=== PATIENT | female | born 1960 | race Asian ===

== ENCOUNTER 2016-09-28 11:28 | Emergency (ER) | payer BC, OTHER ==
[2016-09-28 11:42] VITALS: BP 155/95
--- NOTE | 2016-09-28 11:55 | UC ---
Throat Pain/Nasal Mirza HPI - HPI Summary HPI Summary: Sore throat and body aches for 1 days subjective fevers - History of Current Complaint Chief Complaint: UCGeneralIllness Stated Complaint: COUGH,FEVER, ACHES Time Seen by Provider: 09/28/16 11:33 Hx Obtained From: Patient ?: No Onset/Duration: Sudden Onset, Lasting Days - 1, Still Present Severity: Moderate Pain Intensity: 5 Pain Scale Used: 0-10 Numeric Cough: None Associated Signs & Symptoms: Positive: Fever - subjective - Allergies/Home Medications Allergies/Adverse Reactions: Allergies Allergy/AdvReac Type Severity Reaction Status Date / Time No Known Allergies Allergy Verified 08/26/13 18:05 Home Medications: Home Medications Ibuprofen [Advil] 09/28/16 [History] PMH/Surg Hx/FS Hx/Imm Hx Previously Healthy: Yes - Surgical History Surgical History: Yes Surgery Procedure, Year, and Place: hysterectomy, C-sections - Family History Known Family History: Positive: None Family History: no reported cardiovascular issues in family lineage - Social History Occupation: Employed Full-time Lives: With Family Alcohol Use: Occasionally Substance Use Type: None Smoking Status (MU): Never Smoked Tobacco Review of Systems Constitutional: Chills Skin: Negative Eyes: Negative ENT: Sore Throat Respiratory: Negative Cardiovascular: Negative Gastrointestinal: Negative Genitourinary: Negative Motor: Negative Neurovascular: Negative Musculoskeletal: Arthralgia, Myalgia Neurological: Negative Psychological: Negative All Other Systems Reviewed And Are Negative: Yes Physical Exam Triage Information Reviewed: Yes Appearance: Well-Appearing, No Pain Distress, Well-Nourished Vital Signs: Initial Vital Signs Temp 99.3 F 09/28/16 11:39 Pulse 89 09/28/16 11:39 Resp 18 09/28/16 11:39 BP 155/95 09/28/16 11:39 Pulse Ox 99 09/28/16 11:39 Vital Signs Reviewed: Yes Eye Exam: Normal Eyes: Positive: Conjunctiva Clear ENT Exam: Normal ENT: Positive: Normal ENT inspection, Hearing grossly normal, Pharynx normal, TMs normal. Negative: Nasal congestion, Nasal drainage, Tonsillar swelling, Tonsillar exudate, Trismus, Muffled/hoarse voice Dental Exam: Normal Neck exam: Normal Neck: Positive: Supple, Nontender, No Lymphadenopathy Respiratory Exam: Normal Respiratory: Positive: Chest non-tender, Lungs clear, Normal breath sounds, No respiratory distress, No accessory muscle use Cardiovascular Exam: Normal Cardiovascular: Positive: RRR, No Murmur, Pulses Normal, Brisk Capillary Refill Abdominal Exam: Normal Musculoskeletal Exam: Normal Musculoskeletal: Positive: Strength Intact, ROM Intact, No Edema Neurological Exam: Normal Neurological: Positive: Alert, Muscle Tone Normal Psychological Exam: Normal Skin Exam: Normal Diagnostics - Laboratory Diagnostic Studies Completed/Ordered: RST (-) Throat Pain/Nasal Course/Dx - Course Assessment/Plan: Flonase, Zyrtec, zithmax should Sx worsen or fail to improve, follow Blood Pressure with PCP - Differential Dx/Diagnosis Differential Diagnosis/HQI/PQRI: Pharyngitis, Sinusitis, URI Provider Diagnoses: Allergic Rhinnitis, Elevated Blood Pressure With out Dx Discharge - Discharge Plan Condition: Stable Disposition: HOME Prescriptions: Azithromycin TAB* [Zithromax TAB (Z-MAGGY) 250 mg #6 tabs] 2 tab PO .TODAY, THEN 1 DAILY #1 maggy Cetirizine HCl [Zyrtec Allergy 10 MG TAB] 10 mg PO DAILY #30 cap Fluticasone NASAL SPRAY 50MCG* [Flonase NASAL SPRAY 50MCG*] 2 spray BOTH NARES DAILY #1 btl Patient Education Materials: Pharyngitis (ED), Rhinosinusitis (ED), DASH Eating Plan (ED), Hypertension (ED) Referrals: Kerwin Ocasio MD [Primary Care Provider] - 2 Weeks
== END 2016-09-28 12:28 | disposition home or self-care (01) ==
LOC: UCEAST 11:28
DX: J30.9 Allergic rhinitis, unspecified (principal); R03.0 Elevated blood-pressure reading, without diagnosis of hypertension
CPT/HCPCS: 87651; 99212; G0463